=== PATIENT | male | born 1995 | race Caucasian/White ===

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

== ENCOUNTER 2017-01-22 10:00 | Outpatient (RCR) | payer OTHER | END 2017-01-30 | LOC: M OUTALCOH 10:00 | PROVIDERS: ATTEND Psychiatry & Neurology Psychiatry | DX: F12.20 Cannabis dependence, uncomplicated (principal); F13.20 Sedative, hypnotic or anxiolytic dependence, uncomplicated; F17.200 Nicotine dependence, unspecified, uncomplicated ==

== ENCOUNTER → 2017-11-14 | Outpatient (CLI) | payer MEDICAID, OTHER | LOC: M OUTALCOH 11:03 | DX: Z13.9 Encounter for screening, unspecified (principal); F12.20 Cannabis dependence, uncomplicated; F13.20 Sedative, hypnotic or anxiolytic dependence, uncomplicated ==

== ENCOUNTER 2017-11-26 10:47 | Outpatient (RCR) | payer MEDICAID, OTHER | END 2017-11-29 | LOC: M OUTALCOH 10:47 | DX: F12.20 Cannabis dependence, uncomplicated (principal); F13.20 Sedative, hypnotic or anxiolytic dependence, uncomplicated; F17.200 Nicotine dependence, unspecified, uncomplicated ==

== ENCOUNTER 2017-12-02 13:59 | Outpatient (RCR) | payer MEDICAID | END 2017-12-30 | LOC: M OUTALCOH 13:59 | DX: F12.20 Cannabis dependence, uncomplicated (principal); F13.20 Sedative, hypnotic or anxiolytic dependence, uncomplicated; F17.200 Nicotine dependence, unspecified, uncomplicated ==

== ENCOUNTER 2018-02-04 16:00 | Outpatient (RCR) | payer MEDICAID | END 2018-03-01 | LOC: M OUTALCOH 02-09 13:18 | DX: F12.20 Cannabis dependence, uncomplicated (principal); F13.20 Sedative, hypnotic or anxiolytic dependence, uncomplicated; F17.200 Nicotine dependence, unspecified, uncomplicated ==

== ENCOUNTER 2018-03-06 11:17 | Outpatient (RCR) | payer MEDICAID | END 2018-04-01 | LOC: M OUTALCOH 11:17 | DX: F12.20 Cannabis dependence, uncomplicated (principal); F13.20 Sedative, hypnotic or anxiolytic dependence, uncomplicated; F17.200 Nicotine dependence, unspecified, uncomplicated ==

== ENCOUNTER 2018-06-08 10:24 | Emergency (ER) | payer MEDICAID ==
[~2018-06-08] VITALS: Ht 182.9 cm; Wt 75.0 kg
[2018-06-08] MEDS ORDERED: PERCOCET 5MG/325MG TAB PO ONE (11:00)
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
[2018-06-08] MEDS ORDERED: IBUP-1022 PO (11:42)
[2018-06-08 11:50] VITALS: BP 135/76
== END 2018-06-08 11:51 | disposition home or self-care (01) ==
LOC: M ED 10:24
DX: S93.401A Sprain of unspecified ligament of right ankle, initial encounter (principal); S90.31XA Contusion of right foot, initial encounter; W19.XXXA Unspecified fall, initial encounter; Y92.009 Unspecified place in unspecified non-institutional (private) residence as the place of occurrence of the external cause

== ENCOUNTER → 2018-08-05 | Outpatient (CLI) | payer MEDICAID, SELFPAY ==
[~2018-08-05] MED LIST: IBUP-1022 PO
== END ==
LOC: M OUTALCOH 08:43
PROVIDERS: ATTEND Psychiatry & Neurology Psychiatry
DX: Z13.89 Encounter for screening for other disorder (principal); F12.20 Cannabis dependence, uncomplicated; F17.200 Nicotine dependence, unspecified, uncomplicated

== ENCOUNTER 2018-08-27 16:00 | Outpatient (RCR) | payer SELFPAY | END 2018-08-30 | LOC: M OUTALCOH 16:00 | PROVIDERS: ATTEND Psychiatry & Neurology Psychiatry | DX: F12.20 Cannabis dependence, uncomplicated (principal); F17.200 Nicotine dependence, unspecified, uncomplicated ==

== ENCOUNTER 2018-09-28 13:30 | Outpatient (RCR) | payer MEDICAID, SELFPAY | END 2018-09-29 | LOC: M OUTALCOH 13:30 | PROVIDERS: ATTEND Psychiatry & Neurology Psychiatry | DX: F12.20 Cannabis dependence, uncomplicated (principal); F13.20 Sedative, hypnotic or anxiolytic dependence, uncomplicated; F17.200 Nicotine dependence, unspecified, uncomplicated ==

== ENCOUNTER 2018-10-29 16:00 | Outpatient (RCR) | payer MEDICAID, SELFPAY | END 2018-10-30 | LOC: M OUTALCOH 16:00 | PROVIDERS: ATTEND Psychiatry & Neurology Psychiatry | DX: F12.20 Cannabis dependence, uncomplicated (principal); F13.20 Sedative, hypnotic or anxiolytic dependence, uncomplicated; F17.200 Nicotine dependence, unspecified, uncomplicated ==

== ENCOUNTER 2018-11-11 16:05 | Emergency (ER) | payer OTHER, SELFPAY ==
[~2018-11-11] VITALS: Ht 182.9 cm; Wt 81.2 kg
[2018-11-11 16:05] VITALS: BP 129/69
[2018-11-11] MEDS ORDERED: GABA-1171 PO (16:13)
[2018-11-11] MEDS ORDERED: SERO1TAB3 PO (16:13)
[2018-11-11] MEDS ORDERED: BENA25CA4 PO ×2 (16:44→17:13)
[2018-11-11] MEDS ORDERED: PRED10TA2 PO ×2 (16:44→17:13)
[2018-11-11] MEDS ORDERED: predniSONE 20 MG TAB PO ONE (16:45)
== END 2018-11-11 17:10 | disposition home or self-care (01) ==
LOC: M ED 16:05
DX: L56.4 Polymorphous light eruption (principal); F32.9 Major depressive disorder, single episode, unspecified; F41.9 Anxiety disorder, unspecified; Z72.0 Tobacco use; Z79.899 Other long term (current) drug therapy

== ENCOUNTER → 2018-11-23 | Outpatient (REF) | payer MEDICAID ==
[~2018-11-23] MED LIST changes: +BENA25CA4 PO; +GABA-1171 PO; +PRED10TA2 PO; +SERO1TAB3 PO
[2018-11-23 18:36] LABS: ALBUMIN 4.7 GM/DL (3.2-5.2); ALT/SGPT 23 U/L (12-78); BILIRUBIN,TOTAL 0.7 MG/DL (0.2-1.0); BLOOD UREA NITROGEN 13 MG/DL (7-18); CALCIUM LEVEL 9.5 MG/DL (8.5-10.1); CARBON DIOXIDE LEVEL 26 MEQ/L (21-32); CHLORIDE LEVEL 106 MEQ/L (98-107); CHOLESTEROL LEVEL 170 MG/DL (<200); CHOLESTEROL RISK RATIO 3.863 (<5); CREATININE FOR GFR 0.81 MG/DL (0.70-1.30); FREE T4 1.35 NG/DL (0.78-1.33); GLUCOSE, FASTING 101 MG/DL (70-100); HDL CHOLESTEROL 44 MG/DL (>40); LDL CHOLESTEROL 109 MG/DL (<100); NON-HDL-C 126 MG/DL; POTASSIUM SERUM 4.2 MEQ/L (3.5-5.1); SODIUM LEVEL 139 MEQ/L (136-145); TOTAL PROTEIN 7.6 GM/DL (6.4-8.2); TRIGLYCERIDES LEVEL 83 MG/DL (<150)
[2018-11-23 18:38] LABS: TOTAL 25(OH) VITAMIN D 21.8 NG/ML (30.0-100.0)
[2018-11-23 18:44] LABS: BASO # 0.1 10^3/uL (0.0-0.2); BASO % 0.5 % (0.0-1.0); EOS # 0.1 10^3/uL (0.0-0.50); EOS % 0.9 % (0.0-3.0); HEMATOCRIT 46.4 % (42.0-52.0); HEMOGLOBIN 15.8 g/dl (13.5-17.5); LYMPH # 1.9 10^3/uL (1.5-6.5); LYMPH % 18.6 % (24.0-44.0); MEAN CORPUSCULAR HEMOGLOBIN 32.6 pg (27.0-33.0); MEAN CORPUSCULAR HGB CONC 34.1 g/dl (32.0-36.5); MEAN CORPUSCULAR VOLUME 95.9 fl (80.0-96.0); MONO # 0.9 10^3/uL (0.0-0.8); MONO % 9.1 % (0.0-5.0); NEUTROPHILS # 7.1 10^3/uL (1.8-7.7); NEUTROPHILS % 70.5 % (36.0-66.0); PLATELET COUNT, AUTOMATED 234 10^3/uL (150-450); RED BLOOD COUNT 4.84 10^6/uL (4.30-6.10)
[2018-11-23 20:09] LABS: HEMOGLOBIN A1c 5.2 %
[2018-11-26 00:07] LABS: Lyme Disease IgG/IgM Antibodie <0.91 ISR (0.00-0.90); Lyme Disease IgM Ab Quantitati <0.80 index (0.00-0.79)
== END ==
LOC: M LAB REF 16:19
PROVIDERS: ATTEND Family Medicine
DX: Z13.228 Encounter for screening for other metabolic disorders (principal)

== ENCOUNTER 2018-11-25 16:00 | Outpatient (RCR) | payer SELFPAY | END 2018-11-29 | LOC: M OUTALCOH 16:00 | PROVIDERS: ATTEND Psychiatry & Neurology Psychiatry | DX: F12.20 Cannabis dependence, uncomplicated (principal); F13.20 Sedative, hypnotic or anxiolytic dependence, uncomplicated; F17.200 Nicotine dependence, unspecified, uncomplicated ==

== ENCOUNTER 2018-12-01 13:30 | Emergency (ER) | payer MEDICAID, OTHER ==
[~2018-12-01] VITALS: Ht 182.9 cm; Wt 79.5 kg
[2018-12-01 13:32] VITALS: BP 136/65
== END 2018-12-01 14:02 | disposition left against medical advice (07) ==
LOC: M ED 13:30
DX: Z53.29 Procedure and treatment not carried out because of patient's decision for other reasons (principal)

== ENCOUNTER 2018-12-29 09:00 | Outpatient (RCR) | payer MEDICAID | END 2018-12-30 | LOC: M OUTALCOH 09:00 | PROVIDERS: ATTEND Psychiatry & Neurology Psychiatry | DX: F12.20 Cannabis dependence, uncomplicated (principal) ==

== ENCOUNTER 2019-01-29 14:00 | Outpatient (RCR) | payer MEDICAID | END 2019-01-30 | LOC: M OUTALCOH 14:00 | PROVIDERS: ATTEND Psychiatry & Neurology Psychiatry | DX: F12.20 Cannabis dependence, uncomplicated (principal) ==

== ENCOUNTER 2019-02-09 10:02 | Outpatient (RCR) | payer MEDICAID | END 2019-03-01 | LOC: M OUTALCOH 10:02 | PROVIDERS: ATTEND Psychiatry & Neurology Psychiatry | DX: F12.20 Cannabis dependence, uncomplicated (principal) ==

== ENCOUNTER → 2020-05-18 | Outpatient (REF) | payer OTHER | LOC: M LAB REF 14:42 | PROVIDERS: ATTEND Physician Assistant | DX: Z11.59 Encounter for screening for other viral diseases (principal) ==

== ENCOUNTER 2020-09-21 19:56 | Emergency (ER) | payer OTHER ==
[~2020-09-21] VITALS: Ht 182.9 cm; Wt 82.1 kg
[2020-09-21] MEDS ORDERED: IBUPROFEN 800 MG TAB PO ONE (20:40)
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
[2020-09-21 22:44] VITALS: BP 137/80
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
== END 2020-09-21 22:56 | disposition home or self-care (01) ==
LOC: M ED 19:56
DX: S60.945A Unspecified superficial injury of left ring finger, initial encounter (principal); S93.601A Unspecified sprain of right foot, initial encounter; S00.83XA Contusion of other part of head, initial encounter; Y04.0XXA Assault by unarmed brawl or fight, initial encounter; Y92.89 Other specified places as the place of occurrence of the external cause; Y93.9 Activity, unspecified; Y99.9 Unspecified external cause status; F41.9 Anxiety disorder, unspecified; F32.9 Major depressive disorder, single episode, unspecified

== ENCOUNTER 2020-12-04 02:22 | Emergency (ER) | payer OTHER ==
[~2020-12-04] VITALS: Ht 182.9 cm; Wt 79.1 kg
[2020-12-04 02:23] VITALS: BP 140/100
== END 2020-12-04 03:48 | disposition left against medical advice (07) ==
LOC: M ED 02:22
DX: Z53.21 Procedure and treatment not carried out due to patient leaving prior to being seen by health care provider (principal)